=== PATIENT | female | born 1980 | race Caucasian/White ===

== ENCOUNTER 2024-02-17 23:36 | Emergency (ER) | payer BC ==
[2024-02-17 23:51] VITALS: BP 134/85; PULSE 90; RESP 18; TEMP 99.5; BMI 33.4
[2024-02-17] MEDS ORDERED: KETOROLAC TROMETHAMINE 30 MG/1 ML VIAL ONE (23:51)
[2024-02-18] MEDS: KETOROLAC TROMETHAMINE 30 MG/1 ML VIAL IVPUSH ONE (00:11)
== END 2024-02-18 02:13 | disposition home or self-care (01) ==
LOC: FER 23:36
PROC: 3E0333Z Introduction of Anti-inflammatory into Peripheral Vein, Percutaneous Approach (ICD-10-PCS; principal; 2024-02-17)
DX: R07.89 Other chest pain (principal)
CPT/HCPCS: 36415; 84484; 93005; 99284-25